=== PATIENT | male | born 1970 | race Caucasian/White ===

== ENCOUNTER 2018-07-10 13:49 | Emergency (ER) | payer BC, OTHER ==
[2018-07-10 14:03] VITALS: BMI 41.7
[2018-07-10] MEDS ORDERED: SODIUM CHLORIDE 0.9% 1000 ML INFUS.BAG IV ONE (14:31)
[2018-07-10] MEDS ORDERED: ACETAMINOPHEN 1000 MG/100 ML VIAL (NON FORMULARY) IVPB ONE (14:31)
[2018-07-10] MEDS ORDERED: ACETAMINOPHEN INJECTION 100 ML IVPB ONE (14:56)
[2018-07-10 15:17] LABS: ALBUMIN 3.8 g/dl (3.4-5.0); ALK PHOS 48 U/L (45-117); ANION GAP 8 MMOL/L (8-16); BILIRUBIN,TOTAL 1.1 mg/dl (0.2-1); BLOOD UREA NITROGEN 14 mg/dl (7-18); CALCIUM 8.8 mg/dl (8.5-10); CHLORIDE 103 mmol/L (98-107); CO2 22 mmol/L (21-32); GLUCOSE,RANDOM 103 mg/dl (74-106); POTASSIUM 4.3 mmol/L (3.5-5.1); SGOT/AST 30 U/L (15-37); SGPT/ALT 58 U/L (13-61); SODIUM 133 mmol/L (136-145); TOT PROT 7.3 g/dl (6.4-8.2)
[2018-07-10 15:24] LABS: EOS % 0.2 % (0-4.5); HEMATOCRIT 51.2 % (35.4-49); HEMOGLOBIN 17.4 GM/dl (11.7-16.9); LYMPH % 8.7 % (8-40); MCH 30.7 pg (25.7-33.7); MEAN CELL VOLUME 90.4 fl (80-96); MONO % 4.9 % (3.8-10.2); NEUT % 85.2 % (42.8-82.8); PLATELET COUNT 148 K/MM3 (134-434); RBC 5.67 M/mm3 (4.00-5.60); RDW 12.4 % (11.9-15.9); WHITE BLOOD COUNT 3.5 K/mm3 (4.0-10.8)
--- NOTE | 2018-07-10 15:24 | PDOC ---
History of Present Illness - General Chief Complaint: Pain Stated Complaint: LEFT EAR PAIN THROAT PAIN WEAK Time Seen by Provider: 07/10/18 13:56 - History of Present Illness Initial Comments: 07/10/18 15:21 48 years old past medical history significant for high cholesterol presents emergency Department with fever chills fatigue and tooth pain Patient has a impacted wisdom tooth left lower molar which is scheduled to be removed tomorrow today while at work began to feel tired and fatigued went to his car to rest and states he fell asleep out of exhaustion, adamant that he did not pass out This feel of fatigue has been going on since this morning. No chest pain no shortness of breath no travel no sick contacts no history of any heart disease Symptoms are moderate persistent constant have been going on since this morning with no alleviating or exacerbating factors. Past History - Past Medical History Allergies/Adverse Reactions: Allergies Allergy/AdvReac Type Severity Reaction Status Date / Time No Known Allergies Allergy Unverified 07/10/18 13:51 Home Medications: Ambulatory Orders Amox-Tr/K Cl [Augmentin - 875Mg Tablet] 1 tab PO BID #20 tablet 07/10/18 Pravastatin Sodium 10 mg PO DAILY 07/10/18 COPD: No Hypercholesterolemia: Yes - Suicide/Smoking/Psychosocial Hx Smoking History: Never smoked Information on smoking cessation initiated: No Hx Alcohol Use: No Drug/Substance Use Hx: No Review of Systems - Review of Systems Comments:: 07/10/18 15:23 ROS: A complete review of 10 out of 10 review of systems is taken and is negative apart from what is previously mentioned below and in the HPI. *Physical Exam - Vital Signs Last Vital Signs Temp Pulse Resp BP Pulse Ox 100.4 F H 111 H 16 142/99 98 07/10/18 13:51 07/10/18 13:51 07/10/18 13:51 07/10/18 13:51 07/10/18 13:51 - Physical Exam Comments: 07/10/18 15:23 Vitals: Triage Vital signs reviewed General Appearance: no acute distress, well nourished well developed, Head: Atraumatic, Throat:Impacted Left lower wisom tooth, no surrounding abscess Neck: Supple;No Nucal rigidity Chest Wall: Nontender Cardiac: Regular rate and rhythym, no murmurs, no rubs, no gallops, Lungs: Clear to auscultation bilateral, good air movement bilaterally, Abdomen: Soft, non distended, normal bowel sounds, non tender to palpation Extremities: Full range of motion to all extremities, no cyanosis, clubbing, or edema Skin: Warm and dry, no rashes or lesions, no rash, no petechiae Psych: normal mood, normal affect Moderate Sedation - Procedure Monitoring Vital Signs: Procedure Monitoring Vital Signs Temperature 100.4 F H 07/10/18 13:51 Pulse Rate 111 H 07/10/18 13:51 Respiratory Rate 16 07/10/18 13:51 Blood Pressure 142/99 07/10/18 13:51 O2 Sat by Pulse Oximetry (%) 98 07/10/18 13:51 Heart Score/ECG Review - ECG Impressions Comment:: 07/10/18 16:19 ED Treatment Course - LABORATORY CBC & Chemistry Diagram: 07/10/18 14:55 07/10/18 14:55 - Medications Given in the ED: ED Medications Discontinued Medications Generic Name Dose Route Start Last Admin Trade Name Martir PRN Reason Stop Dose Admin Acetaminophen 1,000 mg 07/10/18 14:31 07/10/18 15:05 Ofirmev Injection - IVPB 07/10/18 14:32 1,000 mg ONCE ONE Administration Sodium Chloride 1,000 ml 07/10/18 14:31 07/10/18 15:05 Normal Saline - IV 07/10/18 14:32 1,000 ml ONCE ONE Administration Medical Decision Making - Medical Decision Making 07/10/18 16:47 Labs within normal limits patient feels much better after fluids and Tylenol likely fever chills from infected wisdom tooth has dental follow-up tomorrow We will start patient on Augmentin he will follow up with his dentist tomorrow for further management Blood cultures were sent Findings, need for follow-up and strict return instructions discussed with patient. 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 We'll check a d-dimer to risk stratify observe and reassess. Dr. Chacon to follow up results and reasses 07/10/18 19:20 *DC/Admit/Observation/Transfer Diagnosis at time of Disposition: Tooth infection - Discharge Dispostion Disposition: HOME Condition at time of disposition: Stable Decision to Admit order: No - Prescriptions Prescriptions: Amox-Tr/K Cl [Augmentin - 875Mg Tablet] 1 tab PO BID #20 tablet - Referrals - Patient Instructions Printed Discharge Instructions: DI for Tooth Decay Additional Instructions: Drink plenty of fluids. Augmentin as prescribed. Alternate Tylenol Motrin as in for fever. Call your dental surgeon tomorrow to discuss whether he should proceed with the to the canal or take antibiotics for a few days Return to nearest emergency department for any severe worsening symptoms or for any concerns. - Post Discharge Activity
[2018-07-10] MEDS ORDERED: AMOX TR/POT CLAV 875MG/125MG TABLETS (FP) PO ONE (16:18)
[2018-07-10] MEDS ORDERED: guaiFENesin/CODEINE 10 ML UNIT-DOSE CUPS PO ONE (16:20)
[2018-07-10] MEDS ORDERED: AMOX TR/POT CLAV 875MG/125MG TABLETS (FP) ONE (16:20)
[2018-07-10] MEDS ORDERED: IBUPROFEN 400 MG TABLET (FP) PO ONE ×2 (17:13→17:15)
[2018-07-10 19:13] VITALS: BP 132/87; PULSE 95; TEMP 99.2
--- NOTE | 2018-07-10 19:57 | PDOC ---
*Physical Exam - Vital Signs Last Vital Signs Temp Pulse Resp BP Pulse Ox 99.2 F 95 H 16 132/87 97 07/10/18 19:13 07/10/18 19:13 07/10/18 19:13 07/10/18 19:13 07/10/18 19:13 ED Treatment Course - LABORATORY CBC & Chemistry Diagram: 07/10/18 14:55 07/10/18 14:55 - ADDITIONAL ORDERS Additional order review: Laboratory Results 07/10/18 07/10/18 07/10/18 18:15 14:55 14:55 D-Dimer 477 Sodium Potassium Chloride Carbon Dioxide Anion Gap BUN Creatinine Creat Clearance w eGFR Random Glucose Lactic Acid 1.7 Calcium Total Bilirubin AST ALT Alkaline Phosphatase Troponin I < 0.03 Total Protein Albumin 07/10/18 14:55 D-Dimer Sodium 133 L Potassium 4.3 Chloride 103 Carbon Dioxide 22 Anion Gap 8 BUN 14 Creatinine 1.0 Creat Clearance w eGFR > 60 Random Glucose 103 Lactic Acid Calcium 8.8 Total Bilirubin 1.1 H AST 30 ALT 58 Alkaline Phosphatase 48 Troponin I Total Protein 7.3 Albumin 3.8 07/10/18 14:55 RBC 5.67 H MCV 90.4 MCHC 34.0 RDW 12.4 MPV 9.0 Neutrophils % 85.2 H Lymphocytes % 8.7 Monocytes % 4.9 Eosinophils % 0.2 Basophils % 1.0 - Medications Given in the ED: ED Medications Discontinued Medications Generic Name Dose Route Start Last Admin Trade Name Martir PRN Reason Stop Dose Admin Acetaminophen 1,000 mg 07/10/18 14:31 07/10/18 15:05 Ofirmev Injection - IVPB 07/10/18 14:32 1,000 mg ONCE ONE Administration Amoxicillin/Clavulanate Potassium 1 tab 07/10/18 16:18 07/10/18 16:21 Augmentin - 875mg Tablet PO 07/10/18 16:19 1 tab ONCE ONE Administration Guaifenesin/Codeine Phosphate 10 ml 07/10/18 16:20 07/10/18 16:22 Robitussin Ac - PO 07/10/18 16:21 Not Given ONCE ONE Ibuprofen 800 mg 07/10/18 17:13 07/10/18 17:16 Motrin - PO 07/10/18 17:14 800 mg ONCE ONE Administration Sodium Chloride 1,000 ml 07/10/18 14:31 07/10/18 15:05 Normal Saline - IV 07/10/18 14:32 1,000 ml ONCE ONE Administration Medical Decision Making - Medical Decision Making 07/10/18 19:50 Patient was signed out at 7 PM from prior attending Dr Palomino, pending workup. Summary: 48-year-old male presenting with left earache, fevers. He is due for her canal/dental procedure tomorrow. Vitals were notable for fever and tachycardia here. He was given Tylenol and Motrin with relief. He was also given Augmentin 1 dose for his early tooth infection. His laboratory results are reviewed, negative flu, mild hemoconcentration noted and mild leukopenia. However patient does not appear toxic. D-dimer is negative, so likelihood of pulmonary embolism is low On reevaluation at 8:00 PM, patient is well-appearing, vital signs have improved , tachycardia improved, no longer febrile and pain is controlled. Will Rx Augmentin 10 day course, patient will see his dentist tomorrow for management of his tooth infection/procedure. Pt to be discharged in stable condition. Patient and family made aware of impression and plan, return precautions discussed (including but not limited to worsening pain or symptoms), fevers, or signs of infection, chest pain, respiratory distress, inability to tolerate oral intake, dehydration, syncope, or neurologic changes). Follow up with PMD and/or specialist as recommended, follow up information provided, take medications as instructed for duration of time. continue with supportive care, avoid triggers and precipitants. All questions answered to patient's satisfaction and expressed understanding and comfort with this. Patient does not suffer from an acute life-threatening medical condition at this time she is safe for outpatient follow-up. *DC/Admit/Observation/Transfer Diagnosis at time of Disposition: Tooth infection - Discharge Dispostion Disposition: HOME Condition at time of disposition: Stable Decision to Admit order: No - Prescriptions Prescriptions: Amox-Tr/K Cl [Augmentin - 875Mg Tablet] 1 tab PO BID #20 tablet - Referrals - Patient Instructions Printed Discharge Instructions: DI for Tooth Decay, DI for Fever (Symptom) -- Adult Additional Instructions: Drink plenty of fluids. Augmentin as prescribed x 10 days. Alternate Tylenol Motrin as in for fever. Call your dental surgeon tomorrow to discuss whether he should proceed with the to the canal or take antibiotics for a few days your blood work was reviewed, you had some dehydration, but otherwise normal. Negative flu test. you should take tylenol/motrin as needed for pain and fevers every 6 hours as needed. Return to nearest emergency department for any severe worsening symptoms or for any concerns. - Post Discharge Activity
--- NOTE | 2018-07-11 10:46 | EKG ---
Test Reason : Blood Pressure : / mmHG Vent. Rate : 106 BPM Atrial Rate : 106 BPM P-R Int : 146 ms QRS Dur : 094 ms QT Int : 326 ms P-R-T Axes : 029 013 037 degrees QTc Int : 433 ms SINUS TACHYCARDIA WITH FUSION COMPLEXES OTHERWISE NORMAL ECG NO PREVIOUS ECGS AVAILABLE Confirmed by TERESA DICKENS, ELIZABETH ([id number]) on 07/11/2018 10:46:34 AM Referred By: DR CAMPBELL Confirmed By:ELIZABETH MOORE MD
== END 2018-07-10 20:04 | disposition home or self-care (01) ==
LOC: FER 13:49
PROC: 3E033NZ Introduction of Analgesics, Hypnotics, Sedatives into Peripheral Vein, Percutaneous Approach (ICD-10-PCS; principal; 2018-07-10)
PROC: 3E0337Z Introduction of Electrolytic and Water Balance Substance into Peripheral Vein, Percutaneous Approach (ICD-10-PCS; 2018-07-10)
DX: K08.9 Disorder of teeth and supporting structures, unspecified (principal); E78.00 Pure hypercholesterolemia, unspecified
CPT/HCPCS: 36415; 80053; 83605; 84484; 85025; 85379; 87040; 87804; 93005; 99283-25; J0131; J7030